=== PATIENT | female | born 1990 | race African-American/Black ===

== ENCOUNTER 2019-02-22 19:23 | Emergency (ER) | payer BC ==
--- NOTE | 2019-02-22 19:57 | ER ---
Nurse's Notes [facility] Name: Karen Woods Age: 28 yrs Sex: Female : 1990 Arrival Date: 02/22/2019 Time: 19:26 Bed 15 Private MD: Diagnosis: Major depressive disorder, recurrent;Suicidal ideations Presentation: 02/22 19:36 Presenting complaint: Patient states: I have been really down this past two weeks and la1 for the last 2 hours I have been thinking about drowning myself. Transition of care: patient was not received from another setting of care. Onset of symptoms was February 22, 2019. Risk Assessment: Do you want to hurt yourself or someone else? Patient reports no desire to harm self or others. Initial Sepsis Screen: Does the patient meet any 2 criteria? No. Patient's initial sepsis screen is negative. Does the patient have a suspected source of infection? No. Patient's initial sepsis screen is negative. Care prior to arrival: None. 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 - Social history:: Smoking status: Patient/guardian denies using tobacco. - Ebola Screening: : No symptoms or risks identified at this time. Screenin:50 Abuse screen: Denies threats or abuse. Denies injuries from another. Nutritional aa1 screening: No deficits noted. Tuberculosis screening: No symptoms or risk factors identified. Fall Risk None identified. Assessment: 19:50 General: Appears in no apparent distress. comfortable, Behavior is calm, cooperative, aa1 appropriate for age. Pain: Denies pain. Neuro: Level of Consciousness is awake, alert, obeys commands, Oriented to person, place, time, situation, Moves all extremities. Full function Gait is steady, Speech is normal. Cardiovascular: Heart tones S1 S2 present Rhythm is regular. Respiratory: Airway is patent Respiratory effort is even, unlabored, Respiratory pattern is regular, symmetrical. GI: No signs and/or symptoms were reported involving the gastrointestinal system. Abdomen is non-distended. : No signs and/or symptoms were reported regarding the genitourinary system. EENT: No signs and/or symptoms were reported regarding the EENT system. Derm: Skin is intact, is healthy with good turgor, Skin is pink, warm \T\ dry. Musculoskeletal: Circulation, motion, and sensation intact. Capillary refill < 3 seconds, Range of motion: intact in all extremities. 20:45 Reassessment: Patient appears in no apparent distress at this time. Patient and/or aa1 family updated on plan of care and expected duration. Pain level reassessed. Patient is alert, oriented x 3, equal unlabored respirations, skin warm/dry/pink. Pt awaiting transfer to psychiatric facility. 21:29 Reassessment: Patient appears in no apparent distress at this time. Patient and/or aa1 family updated on plan of care and expected duration. Pain level reassessed. Patient is alert, oriented x 3, equal unlabored respirations, skin warm/dry/pink. Pt to be transferred to [facility] pending administrative approval. 21:59 Reassessment: Report given to Elizabeth Ambriz RN at [facility]. aa 22:36 Reassessment: Patient appears in no apparent distress at this time. Patient and/or aa1 family updated on plan of care and expected duration. Pain level reassessed. Patient is alert, oriented x 3, equal unlabored respirations, skin warm/dry/pink. Awaiting EMS transport for transfer. 23:09 Reassessment: Patient appears in no apparent distress at this time. Patient is alert, aa1 oriented x 3, equal unlabored respirations, skin warm/dry/pink. [facility] present for transfer. Psych: 19:38 Subjective: Patient's mood is sad, Delusions are denied, Hallucinations are denied la1 Having thoughts of suicide. Plan for suicide is drowning. Objective: Patient is cooperative, Speech is normal, Affect is appropriate. Interventions: Removed personal items and placed in bag. Patient placed in hospital gown. Suicide Risk Assessment: Sad Person Scale: Sex of patient: Female: Score 0 points. Age of patient: Score 1 point if patient 15-34. Depression: Score 1 point if signs of depression are present. Previous Attempt: Score 1 point if patient has previously attempted suicide. Substance Abuse: Score 0 point if patient does not abuse alcohol or drugs. Rational Thinking: Score 0 point if patient has rational thinking. Social Support: Score 0 if social support is present/available. Organized Plan: Score 1 point if patient had a plan in place. Relationship: Score 0 point if patient has a spouse or domestic partner. Chronic Sickness: Score 0 point if patient does not have a chronic illness, debilitating, or severe disorder. TOTAL POINTS: If total points are 3-4, proposed clinical action is close follow-up/consider hospitalization. Pt denies substance abuse. Commitment: Patient will be a voluntary commitment. Vital Signs: 19:37 BP 147 / 79; Pulse 71; Resp 16; Temp 97.6; Pulse Ox 98% on R/A; Weight 49.9 kg; Height la1 5 ft. 1 in. (154.94 cm); 22:08 BP 140 / 85; Pulse 62; Resp 16; Pulse Ox 100% on R/A; oe 19:37 Body Mass Index 20.78 (49.90 kg, 154.94 cm) la1 ED Course: 19:26 Patient arrived in ED. mr 19:37 Triage completed. la1 19:38 Arm band placed on left wrist. la1 19:40 Kevon Manriquez MD is Attending Physician. yvonne 19:50 Patient has correct armband on for positive identification. Placed in gown. Bed in low aa1 position. 19:55 Urine collected: clean catch specimen, jeanette colored. aa1 20:00 Initial lab(s) drawn, by mi, sent to lab. Inserted saline lock: 20 gauge in right aa1 antecubital area, using aseptic technique. Blood collected. 20:10 EKG done, by ED staff, reviewed by Kevon Manriquez MD. aa1 20:15 Safety checks: Items removed: yes. Door open/sign placed on door: yes. Family/friend oe present: no. Sitter present: Yes. 20:30 Safety checks: Items removed: yes. Door open/sign placed on door: yes. Family/friend oe present: no. Sitter present: Yes. 20:31 Kaylene Plunkett, NATALY is Primary Nurse. aa1 20:45 Safety checks: Items removed: yes. Door open/sign placed on door: yes. Family/friend oe present: no. Sitter present: Yes. 21:00 Safety checks: Items removed: yes. Door open/sign placed on door: yes. Family/friend oe present: no. Sitter present: Yes. 21:15 Safety checks: Items removed: yes. Door open/sign placed on door: yes. Family/friend oe present: no. 21:30 Safety checks: Items removed: yes. Door open/sign placed on door: yes. Family/friend oe present: no. Sitter present: Yes. 21:45 Safety checks: Items removed: yes. Door open/sign placed on door: yes. Family/friend oe present: no. Sitter present: Yes. 22:00 Safety checks: Items removed: yes. Door open/sign placed on door: yes. Family/friend oe present: no. Sitter present: Yes. 22:15 Safety checks: Items removed: yes. Door open/sign placed on door: yes. Family/friend oe present: no. Sitter present: Yes. 22:30 Safety checks: Items removed: yes. Door open/sign placed on door: yes. Family/friend oe present: no. Sitter present: Yes. 23:09 No provider procedures requiring assistance completed. IV discontinued, intact, aa1 bleeding controlled, No redness/swelling at site. Pressure dressing applied. Administered Medications: 20:03 Drug: NS 0.9% 1000 ml Route: IV; Rate: 1 bolus; Site: right antecubital; aa1 21:35 Follow up: IV Status: Completed infusion; IV Intake: 1000ml aa1 Intake: 21:35 IV: 1000ml; Total: 1000ml. aa1 Outcome: 19:56 ER care complete, transfer ordered by [facility] 23:09 Transferred by ground [facility] EMS. Transfer form completed. aa1 23:09 Condition: good 23:09 Discharge instructions given to patient, Instructed on the need for transfer, Demonstrated understanding of instructions. 23:10 Patient left the ED. aa1 Signatures: Kaylene Plunkett RN RN aa1 Kevon Manriquez MD MD cha Rivera, Mary mr Attema, Lee, RN RN Enrique Mcclure Corrections: (The following items were deleted from the chart) 21:56 21:52 Safety checks: Items removed: yes. Door open/sign placed on door: yes. oe Family/friend present: no. oe 22:44 22:26 Safety checks: Items removed: yes. Door open/sign placed on door: yes. oe Family/friend present: no. Sitter present: Yes. oe
--- NOTE | 2019-02-22 19:57 | EDPHYS ---
Physician Documentation [facility] Name: Karen Woods Age: 28 yrs Sex: Female : 1990 Arrival Date: 02/22/2019 Time: 19:26 Bed 15 Private MD: ED Physician Kevon Manriquez HPI: 02/22 19:51 This 28 yrs old Black Female presents to ER via Ambulatory with complaints of Suicidal yvonne Ideation. 19:51 The patient presents to the emergency department with depression. Onset: The yvonne symptoms/episode began/occurred 3 day(s) ago. Past psychiatric history: Prior diagnosis: depression. Associated signs and symptoms: The patient has no apparent associated signs or symptoms. Severity of symptoms: At their worst the symptoms were mild in the emergency department the symptoms are unchanged. The patient has not experienced similar symptoms in the past. 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 - Social history:: Smoking status: Patient/guardian denies using tobacco. - Ebola Screening: : No symptoms or risks identified at this time. ROS: 19:53 Constitutional: Negative for fever, chills, and weight loss, Eyes: Negative for injury, yvonne pain, redness, and discharge, ENT: Negative for injury, pain, and discharge, Neck: Negative for injury, pain, and swelling, Cardiovascular: Negative for chest pain, palpitations, and edema, Respiratory: Negative for shortness of breath, cough, wheezing, and pleuritic chest pain, Abdomen/GI: Negative for abdominal pain, nausea, vomiting, diarrhea, and constipation, Back: Negative for injury and pain, : Negative for injury, bleeding, discharge, and swelling, MS/Extremity: Negative for injury and deformity, Skin: Negative for injury, rash, and discoloration, Neuro: Negative for headache, weakness, numbness, tingling, and seizure, Allergy/Immunology: Negative for hives, rash, and allergies, Endocrine: Negative for neck swelling, polydipsia, polyuria, polyphagia, and marked weight changes, Hematologic/Lymphatic: Negative for swollen nodes, abnormal bleeding, and unusual bruising. 19:53 Psych: Positive for depression. Exam: 19:53 Constitutional: This is a well developed, well nourished patient who is awake, alert, yvonne and in no acute distress. Head/Face: Normocephalic, atraumatic. Eyes: Pupils equal round and reactive to light, extra-ocular motions intact. Lids and lashes normal. Conjunctiva and sclera are non-icteric and not injected. Cornea within normal limits. Periorbital areas with no swelling, redness, or edema. ENT: Nares patent. No nasal discharge, no septal abnormalities noted. Tympanic membranes are normal and external auditory canals are clear. Oropharynx with no redness, swelling, or masses, exudates, or evidence of obstruction, uvula midline. Mucous membranes moist. Neck: Trachea midline, no thyromegaly or masses palpated, and no cervical lymphadenopathy. Supple, full range of motion without nuchal rigidity, or vertebral point tenderness. No Meningismus. Chest/axilla: Normal chest wall appearance and motion. Nontender with no deformity. No lesions are appreciated. Cardiovascular: Regular rate and rhythm with a normal S1 and S2. No gallops, murmurs, or rubs. Normal PMI, no JVD. No pulse deficits. Respiratory: Lungs have equal breath sounds bilaterally, clear to auscultation and percussion. No rales, rhonchi or wheezes noted. No increased work of breathing, no retractions or nasal flaring. Abdomen/GI: Soft, non-tender, with normal bowel sounds. No distension or tympany. No guarding or rebound. No evidence of tenderness throughout. Back: No spinal tenderness. No costovertebral tenderness. Full range of motion. Skin: Warm, dry with normal turgor. Normal color with no rashes, no lesions, and no evidence of cellulitis. MS/ Extremity: Pulses equal, no cyanosis. Neurovascular intact. Full, normal range of motion. Neuro: Awake and alert, GCS 15, oriented to person, place, time, and situation. Cranial nerves II-XII grossly intact. Motor strength 5/5 in all extremities. Sensory grossly intact. Cerebellar exam normal. Normal gait. 19:53 Psych: Behavior/mood is pleasant, cooperative, Affect is flat, Oriented to person, place, time, Patient has no thoughts/intents to harm self or others. Judgement / Insight is normal. Memory is normal. Delusions/hallucinations are not present. Vital Signs: 19:37 BP 147 / 79; Pulse 71; Resp 16; Temp 97.6; Pulse Ox 98% on R/A; Weight 49.9 kg; Height la1 5 ft. 1 in. (154.94 cm); 22:08 BP 140 / 85; Pulse 62; Resp 16; Pulse Ox 100% on R/A; oe 19:37 Body Mass Index 20.78 (49.90 kg, 154.94 cm) la1 MDM: 19:40 Patient medically screened. [facility] 19:53 Data reviewed: vital signs, nurses notes, lab test result(s), EKG. [facility] 02/22 19:42 Order name: Acetaminophen [facility] 02/22 19:42 Order name: Basic Metabolic Panel [facility] 02/22 19:42 Order name: CBC with Diff; Complete Time: 20:47 [facility] 02/22 19:42 Order name: ETOH Level; Complete Time: 20:47 [facility] 02/22 19:42 Order name: Hepatic Function; Complete Time: 20:47 [facility] 02/22 19:42 Order name: PT-INR; Complete Time: 20:47 [facility] 02/22 19:42 Order name: Ptt, Activated; Complete Time: 20:47 [facility] 02/22 19:42 Order name: Salicylate; Complete Time: 20:47 [facility] 02/22 19:42 Order name: Urine Drug Screen; Complete Time: 20:47 [facility] 02/22 19:42 Order name: Acetaminophen Level; Complete Time: 20:47 [facility] 02/22 19:42 Order name: Basic Metabolic Panel; Complete Time: 20:47 [facility] 02/22 20:15 Order name: Urine Dipstick--Ancillary (enter results); Complete Time: 20:47 02/22 20:15 Order name: Urine --Ancillary (enter results); Complete Time: 20:47 02/22 19:42 Order name: EKG; Complete Time: 19:43 [facility] 02/22 19:42 Order name: EKG - Nurse/Tech; Complete Time: 20:16 [facility] 02/22 19:42 Order name: IV Saline Lock; Complete Time: 20:16 [facility] 02/22 19:42 Order name: Labs collected and sent; Complete Time: 20:16 [facility] 02/22 19:42 Order name: Urine Dipstick-Ancillary (obtain specimen); Complete Time: 20:13 [facility] 02/22 19:42 Order name: Urine Test (obtain specimen); Complete Time: 20:13 [facility] Administered Medications: 20:03 Drug: NS 0.9% 1000 ml Route: IV; Rate: 1 bolus; Site: right antecubital; aa1 21:35 Follow up: IV Status: Completed infusion; IV Intake: 1000ml aa1 Disposition: 02/22/19 19:56 Transfer ordered to Psych Facility. Diagnosis are Major depressive disorder, recurrent, Suicidal ideations. - Reason for transfer: Higher level of care. - Accepting physician is to psych. - Condition is Stable. - Problem is new. - Symptoms have improved. Signatures: Dispatcher [employer] EDMS Kaylene Plunkett, RN RN aa1 Kevon Manriquez MD MD cha Attema, Lee, RN RN la1 Corrections: (The following items were deleted from the chart) 23:10 19:56 02/22/2019 19:56 Transfer ordered to Psych Facility. Diagnosis is Major aa1 depressive disorder, recurrent; Suicidal ideations. Reason for transfer: Higher level of care. Accepting physician is to psych. Condition is Stable. Problem is new. Symptoms have improved. yvonne
[2019-02-22] MEDS ORDERED: NA CHLORIDE 0.9% 1,000 ML ONE (20:08)
[2019-02-22 20:19] LABS: Absolute Monocytes 0.8 K/uL (0.1-1.3); Absolute Neutrophil 3.3 K/uL (1.8-8.0); Basophils % 0.5 % (0-1.3); Eosinophils % 1.7 % (0-4.4); Hematocrit 38.6 % (36.0-45.0); Lymphocytes % 32.5 % (15.3-44.8); Monocytes % 12.7 % (3.3-12.3); Protime INR 1.01; RBC Red Blood Cell Count 4.41 M/uL (3.86-4.86)
[2019-02-22 20:26] LABS: Barbiturates NEGATIVE (NEGATIVE); Benzodiazepines NEGATIVE (NEGATIVE); Cocaine NEGATIVE (NEGATIVE); METHAMPHETAM NEGATIVE (NEGATIVE); Methadone NEGATIVE (NEGATIVE); Opiates NEGATIVE (NEGATIVE); Phencyclidine NEGATIVE (NEGATIVE); THC Cannibis NEGATIVE (NEGATIVE)
[2019-02-22 20:32] LABS: ALT/SGPT 20 U/L (12-78); AST/SGOT 13 U/L (15-37); Albumin 3.7 g/dL (3.4-5.0); Alkaline Phosphatase 82 U/L (45-117); BUN Blood Urea Nitrogen 11 mg/dL (7-18); Bicarbonate 26 mmol/L (21-32); Bilirubin Direct 0.1 mg/dL (0-0.2); Bilirubin Total 0.5 mg/dL (0.2-1.0); Glucose Level 84 mg/dL (74-106); Potassium 3.9 mmol/L (3.5-5.1); Protein, Total 7.3 g/dL (6.4-8.2); Sodium Level 142 mmol/L (136-145)
[2019-02-22 20:43] LABS: Urine Blood TRACE (NEG); Urine Glucose NEGATIVE (NEG); Urine Protein NEGATIVE (NEG)
--- NOTE | 2019-02-23 07:48 | EKG ---
Test Date: 2019-02-22 Test Time: 20:12:50 Band Booker: SIMRAN MEASUREMENT RESULTS: Intervals: Rate: 56 MO: 144 QRSD: 80 QT: 374 QTc: 360 Rosalie: P: 44 MO: 144 QRS: 61 T: 32 INTERPRETIVE STATEMENTS: Sinus bradycardia Septal infarct, age undetermined Abnormal ECG No previous ECG available for comparison Electronically Signed On 02-23-19 07:46:44 CDT by Saman Carpenter
== END 2019-02-22 23:10 ==
LOC: ER 19:23
DX: F33.9 Major depressive disorder, recurrent, unspecified (principal); R45.851 Suicidal ideations
CPT/HCPCS: 36415; 80048; 80076; 80307; 80320; 80329; 81003; 81025; 85025; 85610; 85730; 93005; 96360; 96361; 99285; J7030